=== PATIENT | male | born 1960 | race Caucasian/White ===

== ENCOUNTER 2016-11-25 15:57 | Day surgery (SDC) | payer OTHER, BC ==
--- NOTE | ~2016-11-25 | EGD ---
EGD REPORT [facility] [address] [place]. [address] NAME: MICHAEL BOUDREAUX : [birth year] STATUS : REG [facility] [place] PAT#: [id number] AGE: 56 ADM/REG DATE : 11/25/16 MR#: [id number] REPORT SERV DATE: 11/25/16 DICTATED BY: KENDRA REYNOLDS DATE: 11/25/16 REPORT STATUS : Draft TRANSCRIBED BY: [facility] DATE: 11/25/16 End[facility] Center Patient Name: Michael Boudreaux Date of : 1960 Attending MD: KENDRA REYNOLDS, Procedure Date No Time: 11/25/2016 Procedure: ERCP Indications: Jaundice Referring MD: MIGEL MOROCHO, Anitha Romero MD Medicines: General Anesthesia. Levaquin 750 mg IV. Complications: No immediate complications. Estimated blood loss: None Procedure: Pre-Anesthesia Assessment: - ASA Grade Assessment: III - A patient with severe systemic disease. After obtaining informed consent, the scope was passed under direct vision. Throughout the procedure, the patient's blood pressure, pulse, and oxygen saturations were monitored continuously. The Duodenoscope was introduced through the mouth, and advanced to the duodenum and used to inject contrast into the bile duct. The ERCP was accomplished without difficulty. The patient tolerated the procedure well. Findings: The major papilla was normal. The bile duct was deeply cannulated with the short-nosed traction sphincterotome. Contrast was injected. I personally interpreted the bile duct images. Ductal flow of contrast was adequate. The hepatic duct bifurcation contained a single moderate stenosis. The left main hepatic duct contained a single severe stenosis 10 mm in length. The right hepatic duct appeared obliterated but there was some filling of the right intrahepatic branches. Biliary sphincterotomy was made with a traction (standard) sphincterotome using ERBE electrocautery. There was no post-sphincterotomy bleeding. The left main hepatic duct was successfully dilated with a 4 mm balloon dilator. Cells for cytology were obtained from the left main hepatic duct by brushing. One 8.5 Fr by 12 cm transpapillary temporary stent was placed into the left hepatic duct. Bile flowed through the stent. The stent was in good position. Impression: - The major papilla appeared normal. - A moderate biliary stricture was found. - A severe biliary stricture was found. Recommendation: - Return to previous diet. - Continue present medications. EGD REPORT [address] [address] NAME: MICHAEL BOUDREAUX : [birth year] STATUS : REG [facility]#: [id number] AGE: 56 ADM/REG DATE : 11/25/16 MR#: [id number] REPORT SERV DATE: 11/25/16 DICTATED BY: KENDRA REYNOLDS DATE: 11/25/16 REPORT STATUS : Draft TRANSCRIBED BY: [employer] DATE: 11/25/16 - Cipro (ciprofloxacin) 500 mg PO BID for 7 days. Procedure Code(s): --- Professional --- 79638, Endoscopic retrograde cholangiopancreatography (ERCP); with placement of endoscopic stent into biliary or pancreatic duct, including pre- and post-dilation and guide wire passage, when performed, including sphincterotomy, when performed, each stent Diagnosis Code(s): --- Professional --- K83.1, Obstruction of bile duct R17, Unspecified jaundice CPT copyright 2013 [employer]. All rights reserved. The codes documented in this report are preliminary and upon compound machine operator review may be revised to meet current compliance requirements. KENDRA REYNOLDS, 11/25/2016 6:16 PM Number of Addenda: 0 Note Initiated On: 11/25/2016 5:05 PM [address] [address]
--- NOTE | ~2016-11-25 | EGD ---
EGD REPORT [facility] [address] [address] NAME: MICHAEL BOUDREAUX : [birth year] STATUS : REG [facility] [place] PAT#: [id number] AGE: 56 ADM/REG DATE : 11/25/16 MR#: [id number] REPORT SERV DATE: 11/25/16 DICTATED BY: KENDRA REYNOLDS DATE: 11/25/16 REPORT STATUS : Draft [facility]ANSCRIBED BY: [facility] DATE: 11/25/16 Endoscopy Center Patient Name: Michael Boudreaux Date of : 1960 Attending MD: KENDRA REYNOLDS, Procedure Date No Time: 11/25/2016 Procedure: Upper EUS Indications: Suspected mass in liver on CT scan Referring MD: MIGEL MOROCHO, Anitha Romero MD Medicines: Monitored Anesthesia Care Complications: No immediate complications. Estimated blood loss: None. Procedure: Pre-Anesthesia Assessment: - ASA Grade Assessment: III - A patient with severe systemic disease. After obtaining informed consent, the endoscope was passed under direct vision. Throughout the procedure, the patient's blood pressure, pulse, and oxygen saturations were monitored continuously. The Endoscope was introduced through the mouth, and advanced to the second part of duodenum. Findings: Endosonographic Finding : There was no sign of significant endosonographic abnormality in the common bile duct. There was no sign of significant endosonographic abnormality in the entire pancreas. The pancreas was well visualized, no masses, no calcifications, the pancreatic duct was well visualized from ampulla to tail, the pancreatic duct was regular in contour. No lymphadenopathy seen. There was no sign of significant endosonographic abnormality in the left lobe of the liver. Impression: - There was no sign of significant pathology in the common bile duct. - There was no sign of significant pathology in the entire pancreas. - There was no evidence of significant pathology in the left lobe of the liver. Recommendation: - Return to previous diet. - Continue present medications. - Perform an ERCP today. Procedure Code(s): --- Professional --- EGD REPORT [address] [place]. [address] NAME: MICHAEL BOUDREAUX : [birth year] STATUS : REG [facility]#: [id number] AGE: 56 ADM/REG DATE : 11/25/16 MR#: [id number] REPORT SERV DATE: 11/25/16 DICTATED BY: KENDRA REYNOLDS DATE: 11/25/16 REPORT STATUS : Draft TRANSCRIBED BY: [employer] DATE: 11/25/16 [id number], Esophagogastroduodenoscopy, flexible, transoral; with endoscopic ultrasound examination, including the esophagus, stomach, and either the duodenum or a surgically altered stomach where the jejunum is examined distal to the anastomosis Diagnosis Code(s): --- Professional --- R93.2, Abnormal findings on diagnostic imaging of liver and biliary tract CPT copyright 2013 [employer]. All rights reserved. The codes documented in this report are preliminary and upon cpc coder review may be revised to meet current compliance requirements. KENDRA REYNOLDS, 11/25/2016 6:18 PM Number of Addenda: 0 Note Initiated On: 11/25/2016 5:04 PM Scope Withdrawal Time 0 hours 0 minutes 0 seconds [address] [facility] [place] [address]
[~2016-11-25 15:57] MED LIST: CINNAMONPO PO; CO Q-10100 MG PO; FARXIGA10 PO; FISH-EPA1000 MG PO; IBU600 PO; JANUMET1 TA1 PO; MULTIVIT/MIN PO; PROSTATE SUPPORT PO; PUMPKIN SEED PO; VITAMIN D31000 UNIT PO; [UNRECOGNIZED DRUG - OTHER] PO
[2016-11-25 16:54] LABS: BUN (BLOOD UREA NITROGEN) 15 MG/DL (6-23); CALCIUM, SERUM 9.1 MG/DL (8.5-10.4); CHLORIDE, SERUM 106 MMOL/L (96-112); CO2 (CARBON DIOXIDE) 29 MMOL/L (24-34); CREATININE 0.76 MG/DL (0.70-1.30); GFR AFRICAN AMERICAN 117 ML/MIN (>=60); GFR NON AFRICAN AMERICAN 101 ML/MIN (>=60); GLUCOSE, SERUM 109 MG/DL (60-99); POTASSIUM, SERUM 4.1 MMOL/L (3.5-5.3); SODIUM, SERUM 141 MMOL/L (135-148)
[2017-01-13] MEDS ORDERED: JANUMET1 TA1 PO (15:39)
[2017-01-13] MEDS ORDERED: NORCO1 TA1 PO (15:41)
[2017-01-13] MEDS ORDERED: PAX20 PO (15:42)
[2017-01-13] MEDS ORDERED: ZANTAC150 MG PO (15:42)
[2017-01-13] MEDS ORDERED: T PO (15:43)
== END 2016-11-25 19:32 | disposition home or self-care (01) ==
LOC: DMU 15:57
PROVIDERS: Internal Medicine Gastroenterology
PROC: 0F798DZ Dilation of Common Bile Duct with Intraluminal Device, Via Natural or Artificial Opening Endoscopic (ICD-10-PCS; principal; 2016-11-25 19:00)
PROC: 0DJ08ZZ Inspection of Upper Intestinal Tract, Via Natural or Artificial Opening Endoscopic (ICD-10-PCS; 2016-11-25 19:00)
DX: K83.1 Obstruction of bile duct (principal); E11.9 Type 2 diabetes mellitus without complications; F17.210 Nicotine dependence, cigarettes, uncomplicated; M19.90 Unspecified osteoarthritis, unspecified site; D64.9 Anemia, unspecified; Z98.890 Other specified postprocedural states; Z79.899 Other long term (current) drug therapy
CPT/HCPCS: 74330; 80048; 82962; 88112; 93005; C1769; C2625; J0330; J1956; J2250; J2370; J2405; Q9967